=== PATIENT | female | born 1995 | race Caucasian/White ===

== ENCOUNTER → 2018-06-06 | Outpatient (CLI) | payer MEDICAID ==
[~2018-06-06] VITALS: Ht 157.5 cm; Wt 96.6 kg
[2018-06-06 16:00] VITALS: BP 127/82
[2018-06-06 17:20] VITALS: BP 121/71
== END ==
LOC: AMSURD 15:36
DX: O99.89 Other specified diseases and conditions complicating pregnancy, childbirth and the puerperium (principal); E86.0 Dehydration; Z3A.28 28 weeks gestation of pregnancy
CPT/HCPCS: J7030

== ENCOUNTER → 2020-05-03 | Outpatient (CLI) | payer OTHER ==
[2018-06-06 17:20] VITALS: BP 121/71
== END ==
LOC: LAB 12:15
DX: Z20.828 Contact with and (suspected) exposure to other viral communicable diseases (principal)

== ENCOUNTER → 2021-04-28 | Outpatient (CLI) | payer OTHER ==
[2018-06-06 17:20] VITALS: BP 121/71
[2021-04-28 10:25] LABS: BASO # 0.05 (0.02-0.10); EOS # 0.12 (0.04-0.40); EOS % 1.6 % (1.0-5.0); HEMOGLOBIN 13.5 g/dL (12.5-16.0); LYMPH# 2.43 (1.50-4.00); MEAN CELL VOLUME 87 fl (78-100); MEAN CORPUSCULAR HEMOGLOBIN 30 pg (27-31); MEAN CORPUSCULAR HGB CONC 35 g/dL (33-37); MEAN PLATELET VOLUME 10.1 fl (7.4-10.4); MONO # 0.49 (0.20-0.80); NEU # 4.63 (1.40-6.50); PLATELET COUNT 284 K/mm3 (130-400); RED BLOOD COUNT 4.47 M/mm3 (4.10-5.30); RED CELL DISTRIBUTION WIDTH 11.7 % (11.5-14.5); WHITE BLOOD COUNT 7.7 K/mm3 (4.8-10.8)
[2021-04-28 10:26] LABS: POTASSIUM 4.6 mmol/L (3.5-5.1)
[2021-04-28 10:27] LABS: ALBUMIN 4.4 g/dL (3.5-5.0)
[2021-04-28 10:28] LABS: CALCIUM 9.2 mg/dL (8.3-10.5)
[2021-04-28 10:29] LABS: TOTAL PROTEIN 7.5 g/dL (6.4-8.3)
[2021-04-28 10:31] LABS: TOTAL BILIRUBIN 0.5 mg/dL (0.2-1.2)
== END ==
LOC: LAB 09:58
PROVIDERS: Physician Assistant
DX: Z00.00 Encounter for general adult medical examination without abnormal findings (principal); Z83.49 Family history of other endocrine, nutritional and metabolic diseases; Z83.3 Family history of diabetes mellitus